=== PATIENT | male | born 1965 | race Caucasian/White ===

== ENCOUNTER 2021-11-27 09:24 | Emergency (ER) | payer OTHER, SELFPAY ==
[2021-11-27 09:36] VITALS: BP 142/79; PULSE 62; RESP 20; TEMP 36.6; O2SAT 100
--- NOTE | 2021-11-27 09:51 | ED.URI ---
HPI - URI/Sore Throat General Chief Complaint: Upper Respiratory Infection Stated Complaint: headache, runny nose fatigue Time Seen by Provider: 11/27/21 10:08 Source: patient and RN notes reviewed Mode of arrival: ambulatory Limitations: no limitations History of Present Illness HPI Narrative: 36-year-old male presents with concern for 2-day history of nasal congestion, head congestion, head pressure, eye pressure, sinus drainage, cough. Patient reports he took DayQuil and took Benadryl with no relief. He denies contacts. He is not vaccinated for COVID. He reports history of hypertension for which she is currently not taking medication. He is a smoker MD elicited complaint: cough, rhinorrhea and nasal congestion Related Data Home Medications Medication Instructions Recorded Confirmed Vicks DayQuil 11/27/21 diphenhydramine HCl [Benadryl] 25 mg PO HS PRN 11/27/21 11/27/21 Allergies Allergy/AdvReac Type Severity Reaction Status Date / Time No Known Allergies Allergy Unverified 08/28/17 11:48 Review of Systems Review of Systems: CONSTITUTIONAL: Denies malaise, sweats, or fever.. Reports chills EYES: Denies visual changes, redness, or discharge. ENT: Reports rhinorrhea, congestion, sinus pain. Denies otalgia and sore throat. CARDIOVASCULAR: Denies chest pain, palpitations, or edema. RESPIRATORY: Reports cough. Denies dyspnea. GASTROINTESTINAL: Denies abdominal pain, nausea, vomiting, diarrhea SKIN: Denies rash or itching. MUSCULOSKELETAL: Reports myalgia. NEUROLOGIC: Denies headache. All systems reviewed & are unremarkable except as noted in HPI and below PMFSH Comments At time of signature, agree with nursing past medical, surgical, social and family history. There is no relevant family history pertinent to the presenting complaint Exam Narrative: GENERAL: Well-appearing, well-nourished, and in no acute distress. HEAD: Normocephalic EYES: PERRLA, conjunctivae clear ENT: Nares clear, turbinates edematous and erythematous, clear discharge. Mucous membranes moist. TM pearly aguillon with dull light reflex bilaterally; no tragal tenderness. Oropharynx not erythematous without lesions. Tonsils not enlarged and without exudate, no drooling, no hoarseness, no trismus, uvula midline. NECK: Supple. No lymphadenopathy CHEST: Clear to auscultation, breath sounds equal. No wheezing, rhonchi, rales, or stridor. No respiratory distress, speaks in full sentences. HEART: Regular rate and rhythm. No murmur heard. SKIN: Warm, dry, no rash. NEURO: Alert and oriented x3. PSYCH: Normal mood and affect Course Course Emergency Course: Patient is aware of diagnosis, understands and agrees to treatment plan. Anticipatory guidance given. Patient agrees to follow-up as directed and is aware of reasons to seek care at the emergency department. Portions of this record may have been created with voice recognition software Level of Care: Express Care Visit Vital Signs Vital signs: Vital Signs Temperature 97.9 F 11/27/21 09:36 Pulse Rate 62 11/27/21 09:36 Respiratory Rate 20 11/27/21 09:36 Blood Pressure 142/79 H 11/27/21 09:36 Pulse Oximetry 100 11/27/21 09:36 Temperature 97.9 F 11/27/21 09:36 Pulse Rate 62 11/27/21 09:36 Respiratory Rate 20 11/27/21 09:36 Blood Pressure 142/79 H 11/27/21 09:36 Pulse Oximetry 100 11/27/21 09:36 Reviewed. MDM - URI/Sore Throat MDM Narrative Medical decision making narrative: Differential diagnosis considered: Velazquez virus, strep pharyngitis, allergic rhinitis, upper respiratory tract infection, sinusitis, rhinosinusitis, nasopharyngitis. viral pharyngitis, otitis media, otitis externa, pneumonia, bronchitis, viral cough syndrome, viral syndrome, and influenza. Exam findings show no acute concerns or changes; patient is non-toxic appearing and is in no distress. Patient is appropriate for outpatient treatment and follow-up. Lab Data Attestation: I reviewed the patient's
== END 2021-11-27 10:24 | disposition home or self-care (01) ==
PROVIDERS: Emergency Provider Nurse Practitioner
DX: J06.9 Acute upper respiratory infection, unspecified (principal)
CPT/HCPCS: 99203; G0463

== ENCOUNTER 2022-01-05 08:13 | Emergency (ER) | payer OTHER, SELFPAY ==
--- NOTE | 2022-01-05 08:18 | ED.URI ---
HPI - URI/Sore Throat General Chief Complaint: Upper Respiratory Infection Stated Complaint: Cough/Body Aches/Headache Time Seen by Provider: 01/05/22 08:18 Source: patient and RN notes reviewed History of Present Illness HPI Narrative: Patient is a 56-year-old male who presents the urgent care with complaints of body aches, headache, cough and congestion. Patient states he was diagnosed with emphysema a couple weeks ago and started on Symbicort a couple days ago. Patient states that he feels the Symbicort made him more short of breath and he has texted his PCP regarding the side effect. Patient states the symptoms started on Wednesday and seem to have gotten worse on Wednesday. Patient has been taking NyQuil and Tylenol. Denies of any ill exposures. Patient has taken 2 negative COVID test since symptoms started. No other acute complaints. No acute distress noted. Patient aware of the plan of care. Some parts of this dictation were generated by voice recognition software and may contain typographical and/or grammatical inaccuracies. Related Data Home Medications Medication Instructions Recorded Confirmed budesonide-formoterol [Symbicort] INHALATION 01/05/22 Allergies Allergy/AdvReac Type Severity Reaction Status Date / Time No Known Allergies Allergy Unverified 01/05/22 08:35 Review of Systems Review of Systems: CONSTITUTIONAL: Reports of fever, chills, sweats EYES: Denies visual changes, redness, or discharge. ENT: Denies rhinorrhea, congestion, sore throat, or otalgia. CARDIOVASCULAR: Denies chest pain, palpitations, or edema. RESPIRATORY: Reports of cough with wheezing and intermittent dyspnea GASTROINTESTINAL: Denies abdominal pain, nausea, vomiting, or diarrhea. GENITOURINARY: Denies dysuria or hematuria. SKIN: Denies rash or itching. MUSCULOSKELETAL: Denies back pain, joint pain, or myalgia. NEUROLOGIC: Reports of headache All other systems reviewed are negative, except as documented in HPI. PMFSH Comments At the time of my signature, I reviewed and agree with the nursing past medical, surgical, social, and family history. There is no relevant family history pertinent to the patient complaint. Exam Narrative: GENERAL: This is a well-nourished, well-developed patient, in no apparent distress. HEAD: normocephalic, atraumatic. EYES: PERRL. Sclera clear/white. Vision is grossly intact. EARS: External ears normal, auditory canals clear and without drainage, TMs normal without perforation. Hearing grossly intact. NOSE: External nose normal with no obvious nasal discharge, nares without redness, no rhinorrhea. THROAT: Mucous membranes moist, posterior pharynx clear. NECK: Neck supple, non-tender without lymphadenopathy, masses or thyromegaly. CARDIOVASCULAR: Regular rate and rhythm without murmurs, gallops, or rubs. RESPIRATORY: Clear to auscultation. Breath sounds equal bilaterally. No wheezes, rales, or rhonchi. GASTROINTESTINAL: Abdomen soft, non-tender, nondistended. Bowel sounds are active. No hepato-splenomegaly, or palpable masses. No guarding. SKIN: warm, intact with no suspicious lesions or rash, good texture and turgor. NEURO: awake, alert, and oriented to person, place and time. There were no obvious focal neurologic abnormalities. EXTREMITIES: No clubbing, cyanosis, or edema. No joint tenderness, effusion, or edema noted. No calf tenderness. Negative Homans sign bilaterally. BACK: Nontender without deformity or crepitance. No flank tenderness. Course Course Level of Care: Express Care Visit Vital Signs Vital signs: Vital Signs Temperature 99.9 F H 01/05/22 08:20 Pulse Rate 84 01/05/22 08:20 Respiratory Rate 20 01/05/22 08:20 Blood Pressure 127/73 01/05/22 08:20 Pulse Oximetry 99 01/05/22 08:20 Temperature 99.9 F H 01/05/22 08:20 Pulse Rate 84 01/05/22 08:20 Respiratory Rate 20 01/05/22 08:20 Blood Pressure 127/73 01/05/22 08:20 Pulse Oximetry 99 01/05/22 08:20 Rev
[2022-01-05 08:20] VITALS: BP 127/73; PULSE 84; RESP 20; TEMP 37.7; O2SAT 99
== END 2022-01-05 08:49 | disposition home or self-care (01) ==
PROVIDERS: Emergency Provider Nurse Practitioner Family
DX: J40 Bronchitis, not specified as acute or chronic (principal); J43.9 Emphysema, unspecified
CPT/HCPCS: 99213; G0463

== ENCOUNTER 2022-07-15 10:35 | Emergency (ER) | payer OTHER, SELFPAY ==
[2022-07-15 10:40] VITALS: BP 135/71; PULSE 102; RESP 16; TEMP 37.2; O2SAT 100
--- NOTE | 2022-07-15 11:12 | ED.URI ---
HPI - URI/Sore Throat General Stated Complaint: Cough/Chills Time Seen by Provider: 07/15/22 11:12 Source: patient and RN notes reviewed Mode of arrival: ambulatory Limitations: no limitations History of Present Illness HPI Narrative: 57-year-old male presenting for complaint of fatigue, body aches, sinus pressure/congestion, cough, fever/chills. onset 3 days. Cough is nonproductive. Denies shortness of breath, wheezing, vomiting, diarrhea. Taking [id number] medication for symptoms. Denies sick contacts. took a negative COVID test at [facility] yesterday. MD elicited complaint: cough Related Data Home Medications Medication Instructions Recorded Confirmed budesonide-formoterol HFA 160 inhalation 01/05/22 mcg-4.5 mcg/actuation aerosol inhaler (Symbicort) Allergies Allergy/AdvReac Type Severity Reaction Status Date / Time No Known Allergies Allergy Unverified 07/15/22 11:31 Review of Systems Review of Systems: ROS per HPI Exam Narrative: GENERAL: Ill-appearing, nontoxic EYES: PERRLA, conjunctivae clear ENT: Mucous membranes moist. TMs pearly aguillon with dull light reflex bilaterally; no tragal tenderness. Oropharynx erythematous without lesions or exudate, no drooling, no hoarseness, no trismus, uvula midline. CHEST: Clear to auscultation, breath sounds equal. No wheezing, rhonchi, rales, or stridor. No respiratory distress, speaks in full sentences. HEART: Regular rate and rhythm. No murmur heard. SKIN: Warm, dry, no rash. NEURO: Alert and oriented x3. PSYCH: Normal mood and affect Course Course Emergency Course: Patient is aware of diagnosis, understands and agrees to treatment plan. Anticipatory guidance given. Patient agrees to follow-up as directed and is aware of reasons to seek care at the emergency department. Portions of this record may have been created with voice recognition software Level of Care: Express Care Visit Vital Signs Vital signs: Vital Signs Temperature 99 F 07/15/22 10:40 Pulse Rate 102 H 07/15/22 10:40 Respiratory Rate 16 07/15/22 10:40 Blood Pressure 135/71 07/15/22 10:40 Pulse Oximetry 100 07/15/22 10:40 Oxygen Delivery Room Air 07/15/22 10:40 Temperature 99 F 07/15/22 10:40 Pulse Rate 102 H 07/15/22 10:40 Respiratory Rate 16 07/15/22 10:40 Blood Pressure 135/71 07/15/22 10:40 Pulse Oximetry 100 07/15/22 10:40 Oxygen Delivery Room Air 07/15/22 10:40 reviewed MDM - URI/Sore Throat MDM Narrative Medical decision making narrative: influenza negative. Results reviewed with patient. Patient is requesting antibiotic. Advised to follow up with primary care provider regarding his symptoms and any additional medications. Advised supportive measures and signs/symptoms to go to the ER. Pt is appropriate for outpt treatment and f/u. Differential Diagnosis Differential diagnosis: Likely upper respiratory infection, sinusitis and viral infection Lab Data Labs: Influenza A Screen Negative Reference Range: Negative Influenza B Screen Negative Reference Range: Negative Discharge Plan Discharge Clinical Impression: Viral infection Patient Disposition: Home, Self-Care Condition: Stable Instructions: Viral Syndrome (ED) Additional Instructions: Recommend Flonase spray and Zyrtec (or Claritin/Nuria) For sinus congestion over the counter Cough syrup may cause drowsiness; avoid driving or take it at night time. Tylenol and ibuprofen every 8 hours as needed for pain/fever Symptomatic treatment includes: rest, fluids, and increase humidity of the air at home. Follow up with your primary care provider in 3 days Go to the ER for worsening symptoms or concerns. Prescriptions: No Action budesonide-formoterol [Symbicort] 160-4.5 mcg/actuation HFA aerosol inhaler See Rx
== END 2022-07-15 11:45 | disposition home or self-care (01) ==
PROVIDERS: Emergency Provider Nurse Practitioner Family
DX: B34.9 Viral infection, unspecified (principal)
CPT/HCPCS: 87804; 99213; G0463

== ENCOUNTER 2023-11-02 09:56 | Emergency (ER) | payer OTHER, SELFPAY ==
[2023-11-02 10:02] VITALS: BP 155/71; PULSE 84; RESP 20; TEMP 37.3; O2SAT 99
--- NOTE | 2023-11-02 10:19 | ED.URI ---
HPI - URI/Sore Throat General Chief Complaint: Upper Respiratory Infection Stated Complaint: upper respiratory Time Seen by Provider: 11/02/23 10:25 Source: patient and RN notes reviewed Mode of arrival: ambulatory Limitations: no limitations History of Present Illness HPI Narrative: 58-year-old male presented for complaint of cough,congestion, headache, mild sore throat, and bilateral eye pressure progressing since onset yesterday. Denies cp, palpitations, sob, wheezing,n/v/d. Has not taken anything for symptoms. pt smokes 1.5ppd. Has not yet required use of rescue inhaler. Endorses hx PA about 6 months ago. MD elicited complaint: cough Related Data Home Medications Medication Instructions Recorded Confirmed budesonide-formoterol HFA 160 See Rx Instructions .Route .COMPLEX 01/05/22 07/15/22 mcg-4.5 mcg/actuation aerosol inhaler (Symbicort) atorvastatin 40 mg tablet mg 11/02/23 losartan 50 mg tablet mg 11/02/23 metoprolol succinate 25 mg mg PO 11/02/23 tablet,extended release 24 hr rosuvastatin 40 mg tablet mg 11/02/23 ticagrelor 90 mg tablet (Brilinta) mg 11/02/23 Allergies Allergy/AdvReac Type Severity Reaction Status Date / Time No Known Allergies Allergy Unverified 07/15/22 11:31 Review of Systems Review of Systems: CONSTITUTIONAL: Endorses malaise, denies chills, sweats, fever EYES: Denies visual changes, redness, or discharge ENT: Reports rhinorrhea, congestion, sore throat Denies otalgia CARDIOVASCULAR: Denies chest pain, palpitations, edema RESPIRATORY: Reports cough, post nasal drainage. Denies dyspnea GASTROINTESTINAL: Denies abdominal pain, nausea, vomiting, diarrhea SKIN: Denies rash or itching MUSCULOSKELETAL: Denies myalgia NEUROLOGIC: Denies headache PMFSH Past Medical History Medical History (Updated 11/02/23 @ 10:39 by Nini Rogers APRN) Myocardial infarction Social History Social History (Updated 11/02/23 @ 10:39 by Nini Rogers APRN) Smoking packs per day: 1.5 Smoking cigarettes per day: 30.0 Smoking status: Current every day smoker Tobacco type: cigarettes Exam Narrative: GENERAL: mildly Ill-appearing, nontoxic no acute distress. EYES: PERRLA, conjunctivae clear ENT: Mucous membranes moist. TMs pearly aguillon with dull light reflex and clear effusion bilaterally; no tragal tenderness. Oropharynx mildly erythematous without lesions or exudate, no drooling, no hoarseness, no trismus, uvula midline. No tripod positioning, muffled voice, soft palate or pharyngeal wall bulging NECK: Supple. No lymphadenopathy CHEST: Clear to auscultation, breath sounds equal. No wheezing, rhonchi, rales, or stridor. No respiratory distress, speaks in full sentences. HEART: Regular rate and rhythm. No murmur heard. SKIN: Warm, dry, no rash. NEURO: Alert and oriented x3. PSYCH: Normal mood and affect Course Course Emergency Course: Patient is aware of diagnosis, understands and agrees to treatment plan. Anticipatory guidance given. Patient agrees to follow-up as directed and is aware of reasons to seek care at the emergency department. Portions of this record may have been created with voice recognition software Level of Care: Express Care Visit Vital Signs Vital signs: Vital Signs Temperature 99.2 F 11/02/23 10:02 Pulse Rate 84 11/02/23 10:02 Respiratory Rate 20 11/02/23 10:02 Blood Pressure 155/71 H 11/02/23 10:02 Pulse Oximetry 99 11/02/23 10:02 Oxygen Delivery Room Air 11/02/23 10:02 Temperature 99.2 F 11/02/23 10:02 Pulse Rate 84 11/02/23 10:02 Respiratory Rate 20 11/02/23 10:02 Blood Pressure 155/71 H 11/02/23 10:02 Pulse Oximetry 99 11/02/23 10:02 Oxygen Delivery Room Air 11/02/23 10:02 reviewed MDM - URI/Sore Throat MDM Narrative Medical decision making narrative: Discussed physical exam findings and negative test results. Reviewed Rxs. Advised supportive measures and signs/symptoms to go to
== END 2023-11-02 10:51 | disposition home or self-care (01) ==
PROVIDERS: Emergency Provider Nurse Practitioner Family
DX: B34.9 Viral infection, unspecified (principal); Z20.822 Contact with and (suspected) exposure to COVID-19; F17.210 Nicotine dependence, cigarettes, uncomplicated; I25.2 Old myocardial infarction
CPT/HCPCS: 87081; 87426; 87804; 87880; 99213; G0463